=== PATIENT | female | born 1970 | race Caucasian/White ===

== ENCOUNTER 2016-11-22 04:02 | Inpatient (IN) ==
--- NOTE | 2016-11-17 13:14 | EKG Report ---
Test Performed on : 11/17/2016 1:12:06 PM Test Reason : PAT Blood Pressure : / mmHG Vent. Rate : 105 BPM Atrial Rate : 105 BPM P-R Int : 150 ms QRS Dur : 074 ms QT Int : 340 ms P-R-T Axes : 040 019 -06 degrees QTc Int : 449 ms Sinus tachycardia. Borderline Low voltage QRS Cannot rule out Anterior infarct , age undetermined Abnormal ECG No previous ECGs available Confirmed by Mo KHOURY, Tyree Butler ([id number]) on 11/18/2016 6:28:05 PM
[2016-11-17 13:22] LABS: MANUAL DIFF NEEDED? NO
[2016-11-17 13:36] LABS: BASO% 0.5 % (0.0-0.8); EOS# 0.25 X1000 (0.0-0.7); EOS% 3.2 % (0.0-10.0); HEMATOCRIT 44.2 % (37.0-47.0); HEMOGLOBIN 14.5 g/dL (12.0-16.0); IMM GRAN# 0.06 X1000 (0.0-0.04); IMM GRAN% 0.8 % (0.0-0.5); LYMPH# 2.34 X1000 (1.2-3.4); LYMPH% 29.6 % (20.5-51.1); MCH 29.6 PG (27-31); MCHC 32.8 g/dL (33-37); MCV 90.2 FL (81-99); MONO# 0.57 X1000 (0.11-0.59); MONO% 7.2 % (1.7-9.3); MPV 8.7 FL (7.4-10.4); NEUT% 58.7 % (42.2-75.2); PLT 386 X1000 (130-400)
[2016-11-17 13:46] LABS: URINE SOURCE VOIDED
[2016-11-17 13:47] LABS: INR 1.03; PROTIME 10.8 Seconds (9.2-11.7); PTT 28.4 Seconds (22.0-36.0)
[2016-11-17 13:54] LABS: BILIRUBIN URINE NEGATIVE (NEGATIVE); BLOOD URINE TRACE (NEGATIVE); COLOR YELLOW; GLUCOSE URINE NEGATIVE (NEGATIVE); LEUKOCYTES URINE LARGE (NEGATIVE); NITRITE URINE NEGATIVE (NEGATIVE); PH URINE 5.5; PROTEIN URINE TRACE mg/dL (NEGATIVE); SP GRAVITY URINE 1.019; TURBIDITY URINE HAZY (CLEAR); URINE MICRO REVIEW NEEDED? YES; UROBILINOGEN URINE NORMAL (NORMAL)
[2016-11-17 13:58] LABS: UR EPITHELIAL CELLS >10 /HPF (<10); URINE BACTERIA 3+ /HPF; URINE RBC <10 /HPF (<10)
[2016-11-17 14:18] LABS: URINE CASTS NONE SEEN; URINE CRYSTALS NONE SEEN; URINE SMALL ROUND CELLS NONE SEEN
[2016-11-17 14:22] LABS: AGAP 15; BUN 13 mg/dL (8-22); CALCIUM 9.5 mg/dL (8.8-10.2); CHLORIDE 97 mmol/L (98-107); COSMO 272; POTASSIUM 4.1 mmol/L (3.5-5.1); SODIUM 135 mmol/L (136-145); TCO2 23 mmol/L (25-35)
[2016-11-22] MEDS ORDERED: REGLAN ONE (07:19)
[2016-11-22] MEDS ORDERED: TRANSDERM-SCOP ONE (07:19)
[2016-11-22] MEDS ORDERED: COLACE ONE (07:19)
[2016-11-22] MEDS ORDERED: PEPCID ONE (07:19)
[2016-11-22] MEDS ORDERED: KEFZOL 2 GM/D5W 2 GM/50 ML IVPB ONE (07:20)
[2016-11-22] MEDS ORDERED: LR 1,000 ML ONE (07:20)
[2016-11-22] MEDS ORDERED: LYRICA ONE (07:20)
[2016-11-22] MEDS ORDERED: CELEBREX ONE (07:20)
[2016-11-22] MEDS ORDERED: VANCOMYCIN ONE (08:19)
[2016-11-22] MEDS ORDERED: DURAMORPH ONE (08:19)
[2016-11-22] MEDS ORDERED: NEOSPORIN G.U. IRRIGANT ONE (08:19)
[2016-11-22] MEDS ORDERED: TORADOL ONE (08:19)
[2016-11-22] MEDS ORDERED: SODIUM CHLORIDE 0.9% ONE (08:19)
[2016-11-22] MEDS ORDERED: MARCAINE 0.25% PF/EPI 1:200,000 ONE (08:19)
[2016-11-22] MEDS ORDERED: CYKLOKAPRON 1,000 MG/NS 1,000 MG/100 ML IVPB ONE ×2 (08:20→08:21)
[2016-11-22] MEDS ORDERED: EXPAREL 1.3% ONE (08:20)
[2016-11-22] MEDS ORDERED: CLAVE SECONDARY SET 11953 ONE (08:20)
--- NOTE | 2016-11-22 09:14 | HISTORY AND PHYSICAL ---
CHIEF COMPLAINT: Left knee pain. HISTORY OF PRESENT ILLNESS: This is a 46-year-old female with a long history of pain in her left knee. She had a knee scope performed several years ago which helped for a short period of time but now the knee has become so severe she has difficulties with activities of daily living. She was evaluated in the office and found to need a left total knee arthroplasty. The surgical procedure, as well as risks and benefits were explained to the patient. At this time she agrees to proceed. ALLERGIES: She is not allergic to any medications. PAST MEDICAL HISTORY: Thyroid disorder. PAST SURGICAL HISTORY: Right wrist, left ear, and left knee scope. REGULAR MEDICATIONS: Wellbutrin 300 one a day, Celexa 20 one a day, Synthroid 100 one a day, meloxicam 15 one a day, and several vitamins and supplements. REVIEW OF SYSTEMS: HEENT: No history of migraines, dizziness, loss of conscious, CVA. Respiratory: She is a nonsmoker. No history of asthma, emphysema, or shortness of breath. Abdomen: Has a history of reflux. No history of bowel or bladder abnormalities. PHYSICAL EXAMINATION: GENERAL APPEARANCE: This is a 46-year-old female, alert and oriented. Her primary care physician is Dr. Solorzano. HEENT: Pupils are equal, round, reactive. NECK: Good range of motion without adenopathy. RESPIRATORY: Respirations are equal and unlabored. Clear bilaterally. HEART: Regular rate and rhythm. ABDOMEN: Soft, nontender. Bowel sounds present. EXTREMITIES: Complains of pain about her left knee. She walks with a limp. She has minimal swelling at this time. IMPRESSION: Degenerative disease left knee. PLAN: Admit at this time for left total knee arthroplasty. Dictated by Joce Cline RN for Danielito Morrison MD This chart was documented by the indicated scribe, Joce Cline RN and accurately reflects the services I performed and decisions made by me, Danielito Morrison MD, as attested by the provider's signature. cc: Danielito Morrison MD
[2016-11-22 09:44] LABS: URINE MICRO REVIEW NEEDED? NO; URINE SOURCE CATH
[2016-11-22 09:46] LABS: BILIRUBIN URINE NEGATIVE (NEGATIVE); BLOOD URINE NEGATIVE (NEGATIVE); COLOR YELLOW; GLUCOSE URINE NEGATIVE (NEGATIVE); LEUKOCYTES URINE NEGATIVE (NEGATIVE); NITRITE URINE NEGATIVE (NEGATIVE); PROTEIN URINE NEGATIVE (NEGATIVE); SP GRAVITY URINE 1.005; TURBIDITY URINE CLEAR (CLEAR); UR EPITHELIAL CELLS <10 /HPF (<10); URINE BACTERIA NEGATIVE /HPF; URINE RBC <10 /HPF (<10); URINE WBC <10 /HPF (<10); UROBILINOGEN URINE NORMAL (NORMAL)
[2016-11-22] MEDS ORDERED: DIPRIVAN 1% 1,000 MG/100 ML BOTTLE ONE (11:44)
[2016-11-22] MEDS ORDERED: FENTANYL ONE (11:44)
[2016-11-22] MEDS ORDERED: VERSED ONE (11:44)
[2016-11-22] MEDS ORDERED: NS 1,000 ML ONE (12:02)
[2016-11-22] MEDS ORDERED: OFIRMEV 1000 MG/ISOTONIC SOLN 1,000 MG/100 ML BOTTLE ONE (12:18)
[2016-11-22] MEDS ORDERED: LR 2,000 ML ONE (12:18)
[2016-11-22] MEDS ORDERED: DECADRON ONE (12:18)
[2016-11-22] MEDS ORDERED: ZOFRAN ONE (12:18)
--- NOTE | 2016-11-22 12:52 | OPERATIVE NOTE ---
PROCEDURE DATE: 11/22/2016 PREOPERATIVE DIAGNOSIS: Left knee degenerative joint disease. POSTOPERATIVE DIAGNOSIS: Left knee degenerative joint disease. PROCEDURE PERFORMED: Left total knee arthroplasty using a [facility] size 6 stem, a size 6 femur, a size 5 tibia, a 10 mm articular insert, and a 35 mm patellar component. SURGEON: Danielito Morrison MD PROCESSING INSPECTOR: CARON Staley ANESTHESIA: Spinal. COMPLICATIONS: None. BLOOD LOSS: Minimal. DRAINS: Hemovac x1. DESCRIPTION OF PROCEDURE: The patient was brought to the operative suite and placed in supine position. After successful administration of spinal anesthesia, a well-padded tourniquet was placed on the left proximal thigh. The left lower extremity was prepped and draped in the usual sterile fashion. The leg was exsanguinated. The tourniquet was insufflated to 350 torr. Through a longitudinal incision, beginning at the superior pole of the patella and extending distally to the tibial tuberosity, it was dissected sharply through the skin. Full-thickness skin flaps were elevated medially and laterally. A medial arthrotomy was made with a vastus snip. The medial capsule was elevated off the medial tibial plateau. The prepatellar fat pad, ACL, PCL, medial meniscus, and lateral meniscus were excised. A drill was entered into distal femur. An intramedullary guide was placed. A distal cutting block was pinned into place. A distal cut was made with the oscillating saw. The femur was sized to a size 6. A size 6 guide was pinned [address]. The anterior cuts, chamfer cuts, and posterior condylar cuts were removed with the oscillating saw. Marginal osteophytes were removed with a rongeur. A box cutting block was pinned into place. A box cut was made with a box osteotome and oscillating saw. Posterior condyle osteophytes were removed with a curved osteotome and rongeur. Attention was then directed to the tibia. A drill was entered into the center of the tibia. An intramedullary guide was placed. Alignment was checked with a drop eric, referencing off the anterior cortex of the tibia and the second ray of the foot and taking 3 mm off the low side the tibia which, in this case, was medially. The tibial cutting block was pinned into place. The articular surface the tibial plateau was removed with the oscillating saw. Marginal osteophytes were removed with a rongeur. Flexion and extension gaps were checked and balanced at 10 mm. The tibia was sized to a size 5. A size 5 guide was used for the fin punch. The tibial trial, femoral trial, and articular insert were placed, taken through range of motion and found to have excellent alignment, balancing, and range of motion. I did a slight medial release to achieve balancing in flexion and extension. Attention was then directed to the patella, where 9 mm off the articular surface of patella was removed with the oscillating saw. The patella was sized to a size 35. A size 35 guide was used to drill peg holes. The lateral facet was chamfered 30 to 45 degrees. A patellar trial was placed, taken through range of motion, and found to have excellent patellar tracking. All trials were then removed. The knee was copiously irrigated and dried, being certain all bone debris was removed. The trial articular insert was removed. The knee was copiously infiltrated with Exparel, including the posterior capsule, anterior capsule, medial and lateral collateral ligaments, subcutaneous muscle, and subcutaneous tissue, and the skin anteriorly. The definitive 10 mm articular insert was then locked onto the tibial baseplate and again taken through range of motion and again found to have excellent alignment, balancing, range of motion, and patellar tracking. A drain was placed exiting superolaterally and buried in the lateral gutter. The medial arthrotomy was closed with 0 Vicryl. The skin edge was approximated with 2-0 Vicryl. The skin was closed with 0 Monocryl subcuticular and Dermabond and then a sterile dressing of a Silverlon dressing was applied. The patient tolerated the procedure well without complication. At the end of the procedure, all counts were correct x2. The patient was transferred to the recovery room in stable condition. cc: Danielito Morrison MD
[2016-11-22] MEDS ORDERED: AMBIEN PO PRN (13:00)
[2016-11-22] MEDS ORDERED: MORPHINE IV PRN (13:00)
[2016-11-22] MEDS ORDERED: MILK OF MAGNESIA PO PRN (13:00)
[2016-11-22] MEDS ORDERED: ZOFRAN IV PRN (13:00)
[2016-11-22] MEDS: ULTRAM PO SCH ×2 (14:32→20:17)
[2016-11-22] MEDS: KEFZOL 2 GM/D5W 2 GM/50 ML IVPB IV SCH (16:43)
[2016-11-22] MEDS: OXY IR PO PRN ×2 (16:43→22:20)
[2016-11-22] MEDS: NS 1,000 ML IV SCH (16:44)
[2016-11-22] MEDS: PERIDEX MT SCH (20:14)
[2016-11-22] MEDS: TYLENOL PO SCH (20:16)
[2016-11-22] MEDS: CELEBREX PO SCH (20:17)
[2016-11-22] MEDS: LYRICA PO SCH (20:18)
[2016-11-22] MEDS: COLACE PO SCH (20:18)
[2016-11-23] MEDS: KEFZOL 2 GM/D5W 2 GM/50 ML IVPB IV SCH (00:25)
[2016-11-23] MEDS: NS 1,000 ML IV SCH (00:26)
[2016-11-23] MEDS: ULTRAM PO SCH ×2 (02:21→08:45)
[2016-11-23] MEDS: TYLENOL PO SCH ×2 (02:22→08:46)
[2016-11-23] MEDS ORDERED: XARELTO PO SCH (06:00)
[2016-11-23 06:39] LABS: HEMATOCRIT 34.1 % (37.0-47.0); HEMOGLOBIN 10.9 g/dL (12.0-16.0)
[2016-11-23] MEDS: OXY IR PO PRN ×2 (06:41→11:42)
[2016-11-23 07:00] LABS: AGAP 11; BUN 12 mg/dL (8-22); CALCIUM 8.7 mg/dL (8.8-10.2); CHLORIDE 99 mmol/L (98-107); COSMO 271; POTASSIUM 5.1 mmol/L (3.5-5.1); SODIUM 135 mmol/L (136-145); TCO2 25 mmol/L (25-35)
[2016-11-23] MEDS ORDERED: SYNTHROID PO SCH (07:00)
[2016-11-23] MEDS ORDERED: PNEUMOVAX 23 IM ONE (07:47)
[2016-11-23] MEDS: LYRICA PO SCH (08:45)
[2016-11-23] MEDS: CELEBREX PO SCH (08:46)
[2016-11-23] MEDS: COLACE PO SCH (08:47)
[2016-11-23] MEDS: PERIDEX MT SCH (08:47)
[2016-11-23] MEDS ORDERED: DECADRON IV ONE (09:00)
[2016-11-23] MEDS ORDERED: SLOW-FE PO SCH (09:00)
[2016-11-23] MEDS ORDERED: WELLBUTRIN XL PO SCH (09:00)
[2016-11-23] MEDS ORDERED: CELEXA PO SCH (09:00)
[2016-11-23] MEDS ORDERED: PEPCID PO SCH (09:00)
[2016-11-23] MEDS ORDERED: VITAMIN B-12 PO SCH (09:00)
[2016-11-23 11:11] VITALS: BP 118/78
--- NOTE | 2016-11-23 18:59 | DISCHARGE SUMMARY ---
ADMISSION DATE: 11/22/2016 DISCHARGE DATE: 11/23/2016 DISCHARGE DIAGNOSIS: Left knee degenerative joint disease status post left total knee arthroplasty. DISCHARGE MEDICATIONS: See discharge med list. DISPOSITION: Patient discharged home with home health, physical therapy. Instructed to return for any signs or symptoms of infection or deep venous thrombosis. Instructed to return see Dr. Morrison next . HOSPITAL COURSE: On the day of admission, the patient underwent a left total knee arthroplasty. Her postoperative course was unremarkable. At discharge, she is afebrile, tolerating a regular diet, ambulating well with physical therapy. Her wound is clean, dry, intact, without sign of infection. She is discharged home in stable condition with instructions to follow up as described above. cc: Danielito Morrison MD
== END 2016-11-23 13:11 | disposition home health service (06) ==
LOC: SURHOLD 04:02 → 4N 09:30
PROVIDERS: ADMIT Orthopaedic Surgery; ATTEND Orthopaedic Surgery

== ENCOUNTER 2018-12-26 17:12 | Observation (INO) ==
[2018-12-26] MEDS ORDERED: ZOFRAN IV PRN (17:45)
[2018-12-26] MEDS ORDERED: DUONEB (A & A) INH ONE (18:00)
[2018-12-26] MEDS: NS 1,000 ML IV SCH (18:13)
[2018-12-26] MEDS ORDERED: SODIUM CHLORIDE 0.9% INJ SCH (18:45)
[2018-12-26 19:29] LABS: BASO# 0.04 X1000 (0.0-0.2); BASO% 0.3 % (0.0-0.8); EOS# 0.14 X1000 (0.0-0.7); HEMATOCRIT 42.8 % (37.0-47.0); HEMOGLOBIN 13.6 g/dL (12.0-16.0); IMM GRAN# 0.17 X1000 (0.0-0.04); IMM GRAN% 1.3 % (0.0-0.5); LYMPH# 1.36 X1000 (1.2-3.4); MCH 27.5 PG (27-31); MCHC 31.8 g/dL (33-37); MCV 86.6 FL (81-99); MONO# 0.96 X1000 (0.11-0.59); MONO% 7.1 % (1.7-9.3); MPV 8.7 FL (7.4-10.4); NEUT# 10.92 X1000 (1.4-6.5); NEUT% 80.3 % (42.2-75.2); PLT 382 X1000 (130-400); RBC 4.94 XMIL (4.2-5.4); RDW 15.8 % (11.5-14.5); WBC 13.59 X1000 (4.8-10.8)
[2018-12-26 20:01] LABS: AGAP 15; ALB/GLOB RATIO 1.2; ALBUMIN 3.9 g/dL (3.5-5.0); ALKALINE PHOSPHATASE 92 U/L (32-104); BUN 21 mg/dL (8-22); CALCIUM 8.4 mg/dL (8.8-10.2); CHLORIDE 101 mmol/L (98-107); COSMO 282; CREATININE 0.8 mg/dL (0.5-0.9); ESTIMATED GFR > 60; GLUCOSE 99 mg/dL (70-104); GOT 11 U/L (10-30); GPT 9 U/L (10-36); POTASSIUM 4.3 mmol/L (3.5-5.1); SODIUM 140 mmol/L (136-145); TCO2 24 mmol/L (25-35); TOTAL PROTEIN 7.1 g/dL (6.3-8.3)
--- NOTE | 2018-12-26 21:47 | HISTORY AND PHYSICAL ---
CHIEF COMPLAINT: 1. Nausea, abdominal pain, diarrhea. 2. Cough, shortness of breath. HISTORY OF PRESENT ILLNESS: She is a 48-year-old white female who was brought to my office with multiple visits prior to this office. Patient was seen in September. She has known history of allergies. She works in the [employer]. She was seen 3 times in the Urgent Care, twice in the [place], admitted in [facility] before , discharged on Tuesday. She was treated with URI symptoms with bronchitis with multiple antibiotics. She also tested flu on November 28. In my office she has nausea, vomiting, abdominal cramps, and admitted to the hospital basically, dehydration, and also rule out C difficile colitis. She was not able to eat anything down for the last 24 hours since she was discharged from [facility]. I did review the x- rays from 12/13/2018 at [facility]. Chest x-ray water-seal were negative, and basically admitted to the hospital for followup. PAST MEDICAL HISTORY: Chronic anxiety, acid reflux disease, hypothyroidism, depression, metabolic syndrome, left ear chronic suppurative otitis media. PAST SURGICAL HISTORY: Left the ear drum surgery, cholecystectomy, left knee arthroplasty, left ear tympanoplasty, right wrist surgery. MEDICINES: Wellbutrin 300 daily, Celexa 20 daily, Flonase 1 spray in each nostril daily, Synthroid 100 mcg daily, Protonix 40 mg daily, sulindac 200 daily, Zyrtec 10 mg daily, Flonase 1 spray in each nostril daily. ALLERGIES: Not known. SOCIAL HISTORY: . One daughter, 3 sons. Working in [employer]. Living in [place]. No smoking. Seldomly drinks alcohol. No drug abuse. FAMILY HISTORY: Father of lung cancer at 55. Mother is 45 years old with heart failure. Mammography September 2017. Pap smear September 2015. REVIEW OF SYSTEMS: HEENT: Chronic sinus infection, cough, shortness of breath and cardiopulmonary and shortness of breath. No chest pain. No PND, orthopnea. Gastrointestinal: Complains of nausea, vomiting, diarrhea, abdominal cramps. Genitourinary: No history of hesitancy, frequency, dysuria. No swelling of legs. Left knee had an arthroplasty done by Dr. Morrison. No skin rashes. Neurologic: No neurologic symptoms or weakness. EXAMINATION: Vital Signs: Temp is 99.7, pulse is 78, blood pressure is stable. 5 feet 9 inches, 240 pounds. HEENT: Left tympanic membrane is cloudy. Nose and throat congested. Neck: Supple. Chest: Bilateral air entry. Heart: Heart sounds are regular. Abdomen: Belly is soft, nontender. Good bowel sounds. No signs of peritonitis. No peripheral edema, cyanosis. No obvious neurological deficits. INVESTIGATIONS: CBC: White cell count 13.59, hematocrit 42, platelets 382,000. SMA-7 is normal. LFTs were normal. Amylase was normal. ASSESSMENT AND PLAN: 1. A 48-year-old white female treated with multiple treatment with outpatient URI symptoms, now complains with nausea, vomiting, diarrhea. Rule out C difficile colitis impending dehydration. Plan is IV fluids. We will get the reports from [facility] and symptomatic treatment for fever on Tylenol. 2. Bronchodilators. 3. Reconcile home medications. 4. DVT/GI prophylaxis as per order sheet. Continue IV fluids. 5. Hypothyroidism, on Synthroid. Will follow up on the clinical course. 6. Patient has already had gallbladder taken out. cc: Wilfredo Solorzano MD MTDD
[2018-12-26] MEDS: TYLENOL PO SCH (23:43)
[2018-12-27] MEDS: TYLENOL PO SCH ×4 (01:12→20:38)
[2018-12-27] MEDS: COLACE PO SCH ×3 (01:13→20:38)
[2018-12-27] MEDS: LOVENOX SUBQ SCH ×2 (01:13→20:38)
[2018-12-27] MEDS: PEPCID IV SCH ×3 (01:13→20:38)
[2018-12-27] MEDS: NS 1,000 ML IV SCH ×3 (01:20→17:47)
[2018-12-27] MEDS: DUONEB (A & A) INH PRN ×3 (03:49→16:01)
[2018-12-27 08:23] LABS: BASO# 0.01 X1000 (0.0-0.2); BASO% 0.1 % (0.0-0.8); EOS# 0.05 X1000 (0.0-0.7); EOS% 0.6 % (0.0-10.0); HEMATOCRIT 38.1 % (37.0-47.0); HEMOGLOBIN 11.9 g/dL (12.0-16.0); LYMPH# 1.92 X1000 (1.2-3.4); LYMPH% 23.9 % (20.5-51.1); MCH 27.5 PG (27-31); MCHC 31.2 g/dL (33-37); MCV 88.2 FL (81-99); MONO# 0.65 X1000 (0.11-0.59); MONO% 8.1 % (1.7-9.3); MPV 8.7 FL (7.4-10.4); NEUT% 67.3 % (42.2-75.2); PLT 350 X1000 (130-400); RBC 4.32 XMIL (4.2-5.4); RDW 15.7 % (11.5-14.5); WBC 8.03 X1000 (4.8-10.8)
[2018-12-27 08:28] LABS: AGAP 11; ALB/GLOB RATIO 1.5; ALBUMIN 3.7 g/dL (3.5-5.0); ALKALINE PHOSPHATASE 89 U/L (32-104); BUN 16 mg/dL (8-22); CHLORIDE 104 mmol/L (98-107); COSMO 280; CREATININE 0.7 mg/dL (0.5-0.9); ESTIMATED GFR > 60; GLUCOSE 96 mg/dL (70-104); GOT 9 U/L (10-30); GPT 8 U/L (10-36); POTASSIUM 3.9 mmol/L (3.5-5.1); SODIUM 140 mmol/L (136-145); TCO2 25 mmol/L (25-35); TOTAL PROTEIN 6.2 g/dL (6.3-8.3)
[2018-12-27] MEDS: SYNTHROID PO SCH (09:50)
[2018-12-27] MEDS: WELLBUTRIN XL PO SCH (09:50)
[2018-12-27] MEDS: CELEXA PO SCH (09:50)
[2018-12-27] MEDS: ZYRTEC PO SCH (09:51)
[2018-12-27] MEDS: VITAMIN B-12 PO SCH (10:00)
--- NOTE | 2018-12-27 19:35 | PROGRESS NOTE ---
DATE: 12/27/2018 SUBJECTIVE: The patient had 3 episodes of diarrhea. Stool culture finally was obtained. So far white cells and blood were negative. Urine was negative. The patient is slightly improving. REVIEW OF SYSTEMS: No abdominal cramps. OBJECTIVE: Vital signs: Temperature is 97 degrees. Vitals are stable. HEENT: Within normal limits. Neck: Supple. No lymphadenopathy. Chest: Clear to auscultation. Cardiovascular: Heart sounds are regular. Abdomen: Belly is soft, nontender. Good bowel sounds. Neurologic: No obvious neurological deficits. INVESTIGATIONS: CBC: White cell count 8, hematocrit 38, platelets 350,000. SMA 7 is normal. ASSESSMENT AND PLAN: 1. Diarrhea, recent history of antibiotic use and follow up on stool for Clostridium difficile. 2. Advance diet. 3. Upper respiratory infection due to allergies. 4. Continue on deep venous thrombosis and gastrointestinal prophylaxis as per order sheet, and if he is stable, we will discharge in the morning. Continue present treatment. LEVEL OF DOCUMENTATION: 25 minutes. cc: Wilfredo Solorzano MD
[2018-12-28] MEDS: BROMFED DM LIQUID PO PRN ×2 (00:54→07:57)
[2018-12-28] MEDS: TYLENOL PO SCH ×4 (01:12→21:01)
[2018-12-28] MEDS: NS 1,000 ML IV SCH ×7 (03:32→20:24)
[2018-12-28] MEDS: DUONEB (A & A) INH PRN ×3 (07:37→21:30)
[2018-12-28] MEDS: WELLBUTRIN XL PO SCH (07:59)
[2018-12-28] MEDS: VITAMIN B-12 PO SCH (07:59)
[2018-12-28] MEDS: PEPCID IV SCH ×2 (07:59→21:01)
[2018-12-28] MEDS: CELEXA PO SCH (07:59)
[2018-12-28] MEDS: SYNTHROID PO SCH (07:59)
[2018-12-28] MEDS: ZYRTEC PO SCH (07:59)
[2018-12-28] MEDS: COLACE PO SCH ×2 (08:00→21:01)
[2018-12-28] MEDS: LOVENOX SUBQ SCH (21:01)
--- NOTE | 2018-12-28 21:52 | PROGRESS NOTE ---
DATE: 12/28/2018 SUBJECTIVE: The patient is a little better. No cough, no congestion, no diarrhea. EXAMINATION: Vital Signs: Low-grade fever. Vitals are stable. HEENT: Within normal limits. Neck: Supple. Chest: Clear. Heart: Sounds are regular. Abdomen: Belly is soft, nontender. LABORATORY: Urine culture is growing gram negative rods. ASSESSMENT AND PLAN: 1. Urinary tract infection. Will start some Levaquin. 2. URI symptoms due to allergies, recovering from flu. No evidence of infection. 3. Diarrhea, nonspecific. 4. Anxiety/depression on Wellbutrin, Celexa, and DVT prophylaxis with Lovenox. Continue IV fluids. 5. Hypothyroidism, on Synthroid. 6. Will follow up. LEVEL OF DOCUMENTATION: 25 minutes. cc: Wilfredo Solorzano MD
[2018-12-29] MEDS: TYLENOL PO SCH ×2 (03:21→09:27)
[2018-12-29] MEDS: NS 1,000 ML IV SCH (03:21)
[2018-12-29] MEDS: DUONEB (A & A) INH PRN ×2 (03:30→09:34)
[2018-12-29 07:45] VITALS: BP 125/81
[2018-12-29] MEDS ORDERED: LEVAQUIN PO SCH (09:00)
[2018-12-29] MEDS: VITAMIN B-12 PO SCH (09:27)
[2018-12-29] MEDS: PEPCID IV SCH (09:27)
[2018-12-29] MEDS: SYNTHROID PO SCH (09:27)
[2018-12-29] MEDS: CELEXA PO SCH (09:27)
[2018-12-29] MEDS: WELLBUTRIN XL PO SCH (09:28)
[2018-12-29] MEDS: ZYRTEC PO SCH (09:28)
--- NOTE | 2018-12-31 01:44 | DISCHARGE SUMMARY ---
ADMISSION DATE: 12/26/2018 DISCHARGE DATE: 12/29/2018 DISCHARGING DIAGNOSES: 1. Diarrhea, nonspecific. 2. Acute allergic asthmatic bronchitis. 3. Metabolic syndrome. 4. Urinary tract infection due to Escherichia coli. 5. Chronic anxiety. 6. Acid reflux disease. 7. Hypothyroidism. 8. Depression. 9. Metabolic syndrome. 10. Chronic left ear suppurative otitis media. BRIEF HISTORY: Please see the H and P that was done on 12/26/2018. In brief, she is a 48-year- old white female, was admitted several times in the past at [facility] and [facility], came to my office with nausea, vomiting, abdominal pain, diarrhea. She was initially treated with allergic bronchitis as well as flu 2 weeks ago. Recently discharged from [facility]. HOSPITAL COURSE: The patient was profoundly dehydrated, given IV fluids. Symptomatic treatment for nausea. Stool cultures did not show any evidence of C diff infection. She does have some urinary tract infection, for which she was given Macrobid. Upper respiratory symptoms, mostly allergies, getting better. She will go back to work on Tuesday, which is 01/01/2019. LABS: During this hospital course were as follows. White cell count came down to 8.0, hematocrit 38, platelets 350,000. Sodium 140, potassium 3.9, chloride 104, BUN 16, creatinine 0.7. Calcium 8.0. LFTs were normal. Amylase 25. Urine cultures are Escherichia coli. DISCHARGE INSTRUCTIONS: 1. Wellbutrin 300 daily, vitamin B12 5000 mcg daily, Celexa 20 daily, Zyrtec 10 daily, Synthroid 100 mcg daily, Singulair 10 daily, Protonix 40 daily, sulindac 200 daily, vitamin C 500 daily, Macrobid 100 p.o. b.i.d., Zofran as needed for nausea. 2. Follow up in my office next week. 3. Will go back to work on 01/01/2019. cc: Wilfredo Solorzano MD
== END 2018-12-29 11:13 | disposition home or self-care (01) ==
LOC: DIRADM → 3N 17:12
PROVIDERS: ADMIT Internal Medicine; ATTEND Internal Medicine
CPT/HCPCS: 80053; 82150; 82270; 85025; 87045; 87046; 87077; 87088; 87186; 87205; 89055; 94640; 94761; A9270; J1650; J7030; S0028